=== PATIENT | female | born 1960 | race African-American/Black ===

== ENCOUNTER 2018-09-04 17:35 | Emergency (ER) | payer BC, MEDICAID ==
[2018-09-04] MEDS ORDERED: Fluorescein Opthalmic Strip ONE (18:41)
[2018-09-04] MEDS ORDERED: Proparacaine 0.5% Opth 15 ML BOT ONE (18:41)
== END 2018-09-04 19:12 | disposition home or self-care (01) ==
LOC: ERS 17:35
DX: H10.9 Unspecified conjunctivitis (principal); I10 Essential (primary) hypertension
CPT/HCPCS: 99282

== ENCOUNTER 2018-12-05 10:20 | Emergency (ER) | payer BC ==
[2018-12-05] MEDS ORDERED: Ibuprofen 800 MG TAB ONE (11:15)
[2018-12-05 11:27] LABS: Bilirubin Negative (Negative); Blood, Urine Small (Negative); Clarity CLOUDY (Clear); Glucose, Urine (Dipstick) Negative (Negative); Leukocyte Large (Negative); Nitrite Negative (Negative); Protein, Urine (Dipstick) Negative (Neg-Trace); Specific Gravity, Urine 1.011 (1.002-1.036); Urobilinogen 0.2 mg/dL (0.2-1.0)
[2018-12-05 11:30] LABS: Bacteria/HPF Rare-Few HPF (None Seen); Hyaline Casts/LPF 7-10 HYALINE CAST LPF (0-3 Hyaline); Pathc Cast-AUWi Flag 2.31 (0-2.49); RBC/HPF 0-3 HPF (0-3); Yeast-AUWi Flag 14.8 (0-25.0)
[2018-12-07 12:06] LABS: Chlamydia by PCR Not Detected (NotDetected); GC by PCR Not Detected (NotDetected)
== END 2018-12-05 11:45 | disposition home or self-care (01) ==
LOC: ERS 10:20
DX: N76.0 Acute vaginitis (principal); N30.00 Acute cystitis without hematuria; I10 Essential (primary) hypertension; Z79.899 Other long term (current) drug therapy
CPT/HCPCS: 81003; 81015; 87086; 87480; 87491; 87510; 87591; 87660; 99283